=== PATIENT | male | born 1990 | race Caucasian/White ===

== ENCOUNTER 2023-12-10 06:32 | Emergency (ER) | payer BC ==
[~2023-12-10] VITALS: Ht 172.7 cm; Wt 111.4 kg
[~2023-12-10 06:32] MED LIST: CYCLOBENZAPRINE10 MG PO; ONDANSETRON ODT8 MG PO
[2023-12-10] MEDS ORDERED: ESCITALOPRAM OX10 MG PO (06:43)
[2023-12-10] MEDS ORDERED: SERTRALINE HCL50 MG PO (06:43)
[2023-12-10 06:54] LABS: BASOPHILS 0.7 % (0-2); EOSINOPHILS 1.6 % (0-6); HEMATOCRIT 49.6 % (35.0-50.0); HEMOGLOBIN 16.9 g/dL (12.0-18.0); LYMPHOCYTES 20.7 % (24-44); MCH 28.4 (27-36); MCV 83.5 fl (81-99); MONOCYTES 6.9 % (0-12); NEUTROPHILS 70.1 % (39-80); PLATELET COUNT 319 K/uL (140-440); RBC 5.94 M/ul (4.3-5.7); RDW 13.3 (10.5-15.0)
[2023-12-10] MEDS ORDERED: ondansetron HCL 4 MG/2 ML VIAL IV ONE (07:00)
[2023-12-10 07:10] LABS: ALBUMIN 4.6 g/dL (3.4-5.0); ALBUMIN/GLOBULIN RATIO 1.07 (1.1-2.4); ANION GAP 17.8 (7-21); BILIRUBIN, TOTAL 1.4 ng/dL (0.2-1.0); BUN/CREATININE RATIO 20.93 (6.0-28.6); CALCIUM 9.5 mg/dL (8.5-10.1); CREATININE, SERUM 0.86 mg/dL (0.70-1.30); POTASSIUM 3.8 mmol/L (3.5-5.1); PROTEIN, TOTAL 8.9 g/dL (6.4-8.2)
[2023-12-10] MEDS ORDERED: SODIUM CHLORIDE 0.9% 2,000 ML IV PRN (07:15)
[2023-12-10] MEDS ORDERED: droPERidol 5 MG/2 ML VIAL IV ONE (07:15)
[2023-12-10] MEDS ORDERED: ONDANSETRON ODT8 MG PO (07:56)
[2023-12-10] MEDS ORDERED: REGLAN10 MG PO (07:56)
[2023-12-10] MEDS ORDERED: diphenhydrAMINE HCL 50 MG/ML VIAL IV ONE (08:15)
[2023-12-10 08:16] LABS: BILIRUBIN, URINE NEGATIVE (negative); BLOOD/HGB, URINE NEGATIVE (Negative); KETONE, URINE >=80 (Negative); LEUK ESTERASE, URINE NEGATIVE (negative); NITRITE, URINE NEGATIVE (negative)
[2023-12-10 08:54] VITALS: BP 153/93
== END 2023-12-10 08:56 | disposition home or self-care (01) ==
LOC: ED 06:32
PROVIDERS: Emergency Medicine
DX: K52.9 Noninfective gastroenteritis and colitis, unspecified (principal); R73.9 Hyperglycemia, unspecified; Z79.899 Other long term (current) drug therapy
CPT/HCPCS: 36415; 80053; 81003; 83690; 83735; 85025; 96361; 96374; 96375; 99284-25; J1200; J1790; J2405; J7030

== ENCOUNTER 2024-03-10 07:01 | Emergency (ER) | payer BC ==
[~2024-03-10] VITALS: Ht 172.7 cm; Wt 108.0 kg
[~2024-03-10 07:01] MED LIST changes: +ESCITALOPRAM OX10 MG PO; +LOMOTIL TABLET1 EACH PO; +OMEPRAZOLE20 M1 PO; +REGLAN10 MG PO; +SERTRALINE HCL50 MG PO
--- OUTSIDE RECORDS SUMMARY | 2024-03-10 07:08 | XMS ---
PreManage Notification: NERIS COLLIER Security Grades 7 8 Tutor Events No recent Security Events currently on file CRITERIA MET - [facility] - 2 Visits in 30 Days CARE PROVIDERS There are no care providers on record at this time. Elier has no Care Guidelines for this patient. [facility] MO[facility] NOTE: Visits indicate total known visits. ED/C VISIT TRACKING (12 MO.) [facility] COMPLAINT: - ABDOMAINAL PAIN 03/08/2024 20:22 [facility] [place] [facility] [place] TYPE: Emergency COMPLAINT: - ABDOMINAL PAIN DIAGNOSES: - Noninfective gastroenteritis and colitis, unspecified - Other [facility] (current) drug therapy - Type 2 diabetes mellitus without complications - Unspecified abdominal pain 03/06/2024 06:[address] [facility] [facility] [place] TYPE: Emergency COMPLAINT: - WEAKNESS DIAGNOSES: - Cannabis use, unspecified, uncomplicated - Encounter for screening for COVID-19 - Other [facility] (current) drug therapy - Transient alteration of awareness - Weakness 12/10/2023 06:[address] [facility] [address] [facility] [place] TYPE: Emergency COMPLAINT: - ABD PAIN, VOMITING, WEAK, SWEATY DIAGNOSES: - Diarrhea, unspecified - Hyperglycemia, unspecified - Noninfective gastroenteritis and colitis, unspecified - Other [facility] (current) drug therapy 05/30/2023 05:30 [facility] [place] TYPE: Emergency COMPLAINT: - COLD SYPTOMS DIAGNOSES: - COVID-19 - Fever, unspecified - Pain, unspecified INPATIENT VISIT TRACKING (12 MO.) No inpatient visits to display in this time frame [email or web address]
[2024-03-10] MEDS ORDERED: ondansetron HCL 4 MG/2 ML VIAL IV ONE (07:30)
[2024-03-10] MEDS ORDERED: SODIUM CHLORIDE 0.9% 1,000 ML IV PRN ×2 (07:30→09:00)
[2024-03-10] MEDS ORDERED: KETOROLAC TROMETHAMINE 30 MG/ML VIAL IV ONE (07:30)
[2024-03-10 07:32] LABS: BASOPHILS 0.5 % (0-2); EOSINOPHILS 1.9 % (0-6); HEMATOCRIT 45.6 % (35.0-50.0); HEMOGLOBIN 15.7 g/dL (12.0-18.0); LYMPHOCYTES 30.6 % (24-44); MCH 28.7 (27-36); MCHC 34.5 g/dl (30-36); MCV 83.4 fl (81-99); MONOCYTES 10.6 % (0-12); NEUTROPHILS 56.4 % (39-80); PLATELET COUNT 275 K/uL (140-440); RBC 5.46 M/ul (4.3-5.7); RDW 12.9 (10.5-15.0)
[2024-03-10 07:46] LABS: ALBUMIN 4.1 g/dL (3.4-5.0); ALBUMIN/GLOBULIN RATIO 1.17 (1.1-2.4); ANION GAP 13.9 (7-21); BILIRUBIN, TOTAL 3.6 ng/dL (0.2-1.0); BUN/CREATININE RATIO 16.66 (6.0-28.6); CALCIUM 8.6 mg/dL (8.5-10.1); CREATININE, SERUM 0.66 mg/dL (0.70-1.30); POTASSIUM 2.9 mmol/L (3.5-5.1); PROTEIN, TOTAL 7.6 g/dL (6.4-8.2)
[2024-03-10] MEDS ORDERED: HALOPERIDOL LACTATE 5 MG/ML VIAL IV ONE (08:15)
[2024-03-10 08:22] LABS: BILIRUBIN, URINE NEGATIVE (negative); BLOOD/HGB, URINE NEGATIVE (Negative); KETONE, URINE >=80 (Negative); LEUK ESTERASE, URINE NEGATIVE (negative); NITRITE, URINE NEGATIVE (negative)
[2024-03-10 08:26] LABS: BACTERIA, URINE NONE SEEN /hpf (negative); CASTS, URINE NONE SEEN \\lpf; COLLECTION TYPE, URINE CLEAN CATCH; CRYSTALS, URINE NONE SEEN (0-1+); EPITHELIAL CELLS, URINE SQUAMOUS 1+ /lpf (0-1+); RED BLOOD CELLS, URINE 0-1 /hpf (0-5); REFLEX CULTURE, URINE No (No); WHITE BLOOD CELLS, URINE 0-1 /HPF (0-5)
[2024-03-10 08:38] LABS: AMPHETAMINES, URINE NEGATIVE (NEGATIVE); BARBITURATES, URINE NEGATIVE (NEGATIVE); BENZODIAZEPINE, URINE NEGATIVE (NEGATIVE); BUPRENORPHINE, URINE NEGATIVE (NEGATIVE); CANNABINOID, URINE POSITIVE (NEGATIVE); COCAINE, URINE NEGATIVE (NEGATIVE); ECSTASY, URINE NEGATIVE (NEGATIVE); FENTANYL, URINE NEGATIVE (NEGATIVE); METHADONE, URINE NEGATIVE (NEGATIVE); OPIATES, URINE NEGATIVE (NEGATIVE); OXYCODONE, URINE NEGATIVE (NEGATIVE); PHENCYCLIDINE, URINE NEGATIVE (NEGATIVE)
[2024-03-10] MEDS ORDERED: diphenhydrAMINE HCL 50 MG/ML VIAL IV ONE (09:00)
[2024-03-10] MEDS ORDERED: ONDANSETRON ODT4 MG PO (09:39)
[2024-03-10 09:44] VITALS: BP 121/67
== END 2024-03-10 09:44 | disposition home or self-care (01) ==
LOC: ED 07:01
PROVIDERS: Emergency Medicine
DX: R11.11 Vomiting without nausea (principal); F12.20 Cannabis dependence, uncomplicated; R10.13 Epigastric pain; E11.9 Type 2 diabetes mellitus without complications
CPT/HCPCS: 36415; 80053; 80307; 81001; 83690; 83735; 85025; 96374; 96375; 99284-25; J1200; J1630; J1885; J2405; J7030